=== PATIENT | male | born 1955 | race Caucasian/White ===

== ENCOUNTER 2016-12-12 10:31 | Inpatient (IN) | payer OTHER ==
[~2016-12-12] VITALS: Ht 170.2 cm; Wt 63.5 kg
[~2016-12-12 10:31] MED LIST: ADVAIR 100-501 EACH INH; CLONAZEPAM0.5 M2 PO; MIRTAZAPINE45 M1 PO; PREDNISONE20 M1 PO; PROAIR HFA8.5 GM INH; REMERON15 M2 PO; SENOKOT8.6 M2 PO; ZITHROMAX250 M2 PO
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
[2016-12-12 12:55] LABS: ABSOLUTE BASOPHIL COUNT 0 /CUMM (0.0-0.2); ABSOLUTE EOSINOPHIL COUNT 0.1 /CUMM (0.0-0.7); ABSOLUTE GRANULOCYTE CT 5.2 /CUMM (1.4-6.5); ABSOLUTE LYMPH COUNT 2.4 /CUMM (1.2-3.4); ABSOLUTE MONOCYTE COUNT 0.5 /CUMM (0.10-0.60); BASOPHIL % 0.4 % (0.0-2.0); EOSINOPHIL % 1.1 % (0-5); GRANULOCYTE % 63.3 % (42.2-75.2); HEMATOCRIT 46.8 % (42-52); MEAN CORPUSCULAR HGB 30.4 PG (27.0-31.0); MEAN CORPUSCULAR HGB CONC 33.9 G/DL (33.0-37.0); MEAN CORPUSCULAR VOLUME 89.8 FL (80.0-94.0); MEAN PLATELET VOLUME 7.8 FL (7.4-10.4); PLATELET COUNT 232 /CUMM (130-400); RBC DISTRIBUTION WIDTH 13.8 % (11.5-14.5); RED BLOOD CELL CT 5.22 /CUMM (4.70-6.10); WHITE BLOOD CELL COUNT 8.2 /CUMM (4.8-10.8)
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
--- NOTE | 2016-12-12 18:31 | NUR ---
PT SLEEPING AT THIS TIME. NO ACUTE DISTRESS NOTED. 1:[address] WILL CONTINUE TO MONITOR.
--- NOTE | 2016-12-12 19:52 | NUR ---
Crisis evaluation completed. Pt suicidal with plan. Pt is a bed search for inpatient admission.
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
--- NOTE | 2016-12-13 00:58 | NUR ---
PT WOKEN UP TO BE MEDICATED. PT GIVEN 50MG ATARAX PER EMAR. PT BACK TO SLEEP, NO DISTRESS, SITTER AT BEDSIDE
--- NOTE | 2016-12-13 02:46 | NUR ---
PT SLEEPING AT THIS TIME, BILATERAL CHEST RISE AND FALL NOTED, SITTER AT BEDSIDE FOR SAFETY, NAD.
--- NOTE | 2016-12-13 04:16 | NUR ---
PT SLEEPING AT THIS TIME, OFFERING NO COMPLAINTS, NAD. SITTER IN PLACE
--- NOTE | 2016-12-13 06:28 | NUR ---
PT SLEEPING AT THIS TIME, NO DISTRESS NOTED, OFFERING NO COMPLAINTS. SITTER AT BEDSIDE FOR SAFETY.
--- NOTE | 2016-12-13 07:27 | NUR ---
SLEEPING. SITTER IN ATTENDANCE. RR WNL.
--- NOTE | 2016-12-13 08:00 | NUR ---
OFFERED PT BREAKFAST, PT STATING "I'M GOING TO STARVE MYSELF TO ".
--- NOTE | 2016-12-13 09:32 | NUR ---
PT STATED TO THE SITTER THAT HE WAS SEEING LIZARDS. PT OFFERED DOSE OF KLONOPIN. PT REFUSED, STATING "WHAT ARE THESE THINGS ON MY ARMS, THEY HAVE BEEN THERE FOR 2 DAYS, I'M [facility] WHY CAN'T YOU TELL ME WHAT THEY ARE, I'M NOT TAKING ANYTHING UNTIL YOU TELL ME WHAT THEY ARE."
--- NOTE | 2016-12-13 10:47 | NUR ---
PICKING AT SCABS ON ARMS, C/O FEELING "ITCHY". WANTS TO LEAVE TO SEE A AUTOMOBILE ACCESSORIES SALESPERSON. DR. MOON VALADEZ.
--- NOTE | 2016-12-13 12:00 | NUR ---
PT REFUSING TO EAT. AWAITING DISPO/POC. Informed waiting has been performed.
--- NOTE | 2016-12-13 14:00 | NUR ---
PT WILL BE ADMITTED. AWARE OF ADMISSION STATUS. PT GIVEN HIS CELL PHONE TO MAKE PHONE CALLS. Informed waiting has been performed.
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
--- NOTE | 2016-12-13 15:00 | NUR ---
REPORT HANDED OFF TO DIGNA PALOMO.
--- NOTE | 2016-12-13 15:50 | SOCIAL WORKER PROG NOTE PSYCH ---
Social Work Progress Note Progress Note This clinician was unable to get pt to cooperate with answering questions for his diagnostic assessment and social hx. Pt presents as irritable, hyper verbal, and tangential. Pt would talk over this clinician not allowing questions to be asked. When questions were asked, he would not answer and was focused on talking about how angry he is at the system that has failed him and led him to want to kill himself.
[2016-12-13 17:15] VITALS: BP 134/90
[2016-12-13 19:56] VITALS: BP 148/90
--- NOTE | 2016-12-13 22:30 | NUR ---
Pt is out in the community loud at times no behavioral issues noted upon arrival. Pt is compliant and cooperative with the staff. Vital signs are stable c/o pain rn is aware. Pt appetite is good. Will continue to monitor the pt overnight.
--- NOTE | 2016-12-13 23:24 | NUR ---
Patient admitted to CPS from ED. Patient pleasant hyperverbal and impulsive with statements. Patient denies SI, but does report HI toward cousin who is up for parole for murdering family in [place], [place]. Patient has multiple sores about the face, neck and arms. Dr. Alexander evalaued in ED and reported off as not bed bugs, or other infestation. 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 Patient lives alone without monetary or public assistance. Patient speech loud, coherent. Patient has contracted for safety while on unit. Patient reports being sober for 2 years now. Patient can be loud, but redirectable. Looking forward to assisting James with mental health.
[2016-12-14 08:00] VITALS: BP 123/74
--- NOTE | 2016-12-14 12:13 | NUR ---
PT IS PRESENT ON THE UNIT, ATTENDING GROUPS, MET WITH HYDRAULIC LIFT OPERATOR AND BECAME IRRITABLE AND WAS UPSET THAT HE COULD NOT LEAVE RIGHT AWAY YET REFUSED TO SIGN A THREE DAY PAPER WHEN PRESENTED WITH THE CHANCE, ARON VALADEZ. AWAITING TO MEET WITH DR. MORRELL FOR H&P HE WANTS TO ADDRESS SCABS ON BODY, MOOD IS STABLE WITH FULL RANGE AFEFCT.
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
[2016-12-14 13:28] VITALS: BP 144/90
--- NOTE | 2016-12-14 14:25 | History & Physical ---
General Information and HPI History of Present Illness: This middle-aged male came in to the hospital for psychiatric help because he was feeling somewhat depressed and he claims he was not taking his medication properly that was given to him by outpatient psychiatrist. He also reports that he wanted some help with total disability and figured that the hospital can help him with that. He claims he has not seen his outpatient psychiatrist recently because he is not accepting his insurance anymore. From physical standpoint he complains of some itchy painter on both arms and around the neck as well as lower legs and feet for last few days. He claims he has had psychiatric history for a long time and has been seeing a psychiatrist for that. He denies any other major medical illnesses except for some COPD since he has been a smoker for about 40 years or so. He claims that he was only on Remeron and Ativan as outpatient. He is single never and no children and claims he is not drinking much alcohol. Allergies/Medications Allergies: Coded Allergies: Penicillins (UNKNOWN 07/01/16) Home Med list Clonazepam 0.5 MG TABLET 1 TAB PO DAILY NEEDED ANXIETY (Reported) Fluticasone-Salmeterol (Advair 100-50 Diskus) 1 EACH BLST.W.DEV 1 PUF INH BID ASTHMA (Reported) Mirtazapine (Remeron) 15 MG TABLET 1 TAB PO QPM MENTA (Reported) Prednisone 20 MG TABLET 1 TAB PO BID bronchospasm Sennosides (Senokot) 8.6 MG TABLET 1 TAB PO DAILY PRN constipation Past History Travel History Traveled to [place] past 21 day No Medical History Neurological: NONE EENT: NONE Respiratory: COPD Gastrointestinal: NONE Hepatic: NONE Renal: NONE Musculoskeletal: SCOLIOSOS Psychiatric: anxiety, bipolar disease, depression, schizophrenia, substance abuse Endocrine: NONE Blood Disorders: NONE Cancer(s): NONE 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 Denies: malaise, weakness, unexplained weight loss. EENTM: Denies: no symptoms. Cardiovascular: Denies: no symptoms. Respiratory: Reports: see HPI, cough. Denies: short of breath, sputum production. GI: Denies: no symptoms. Genitourinary: Denies: no symptoms. Musculoskeletal: Denies: no symptoms. Skin: Reports: see HPI, dryness, erythema, lesions, rash. Neurological/Psychological: Reports: see HPI, anxiety, depressed, emotional problems. Hematologic/Endocrine: Denies: no symptoms. Immunologic/Allergic: Denies: no symptoms. All Other Systems: Reviewed and Negative Exam & Diagnostic Data Last 24 Hrs of Vital Signs/I&O Vital Signs Date Time Temp Pulse Resp B/P Pulse O2 O2 Flow FiO2 Ox Delivery Rate 12/14 1328 80 144/90 12/14 08 96.7 89 123/74 12/13 1956 97.7 114 148/90 12/13 1715 108 134/90 Intake & Output 12/14 1600 12/14 0812/14 0000 Intake Total Output Total Balance Patient 140 lb Weight Physical Exam General Appearance Alert, Oriented X3, Cooperative, No Acute Distress Skin he has multiple groups of some maculopapular and erythematous lesions mostly in the distal arms on both sides and lower legs somewhat less as well as in the back of the neck with scratch painter. There are no vesicles but some crusting HEENT Atraumatic, PERRLA, EOMI, Mucous Membr. moist/pink Neck Supple, No JVD, No thryomegaly, +2 Carotid Pulse wo Bruit Lymphatic Cervical nl Cardiovascular Regular Rate, Normal S1, Normal S2, No Murmurs, Gallops, Rubs Lungs Clear to Auscultation, Normal Air Movement Abdomen Soft, No Tenderness, No Hepatospenomegaly, No Masses Neurological Exam Findings: Normal Gait, Normal Speech, Strength at 5/5 X4 Ext, Normal Tone, Cranial Nerves 3-12 NL, Reflexes 2+ Cranial Nerves II through XII: Within normal limits and intact. Extremities No Clubbing, No Cyanosis, No Edema, No Tenderness/Swelling Assessment/Plan Assessment: This middle-aged male is admitted for bipolar disorder and increased depression first time to [facility]. He has been admitted many other hospitals previously and admits that he was not taking all his medications as prescribed by his outpatient psychiatrist. He has multiple skin lesions which are maculopapular isolated and erythematous with scratch painter mostly in the distal arms and lower back area as well as lower legs which is much less than the arms. There are multiple scratch painter all over due to itching of the lesions. Some have some crusting and others are open due to recent scratching. Most likely they are insect bite rather than any other systemic disease. His labs including a CBC CMP liver function electrolytes are all normal. The urine for toxicology is positive for cannabis and negative for all other drugs tested. We can use topical hydrocortisone twice a day for a few days on the skin lesions and hopefully should help it heal and he can continue his hydroxyzine on a when necessary basis for itching that was already ordered. There is no other acute medical problem at this time and he does not require any other specific workup or treatment at this time. As Ranked By This Provider Problem List: 1. Depression Qualifiers Depression Type: unspecified Qualified Code: F32.9 - Major depressive disorder, single episode, unspecified 2. Suicidal ideation 3. Bed bug bite Qualifiers Encounter type: initial encounter Qualified Code: W57.XXXA - Bitten or stung by nonvenomous insect and other nonvenomous arthropods, initial encounter 4. COPD with acute bronchitis Miscellaneous Miscellaneous Documentation Attending Case Discussed With: SOM AL MD Primary Care Physician: MICHELLE IBANEZ MD Patient sees these Specialists none Level of Patient Care: NERISSA Payton Attending MD Review Statement Attending Statement Attending MD Statement: examined this patient, reviewed EMR data (avail), discussed with nursing Attending Assessment/Plan: This middle-aged male is admitted for increased depression and bipolar disorder. From medical standpoint he's fairly stable except for his skin lesions which are most likely insect bites rather than any other systemic disease. For now we will use the topical hydrocortisone twice a day and he can continue his hydroxyzine on a when necessary basis if needed. There is no need for any other medical workup or treatment at this time.
--- NOTE | 2016-12-14 15:25 | SOCIAL WORKER TX PLAN PSYCH ---
Treatment Plan - Please Document: - Evidence that there is ongoing collaboration between - the patient and the interdisciplinary team, - including the patient's active participation and - responsibility for engaging in the treatment regimen, - and that the treatment plan is individualized and - relevant to the patient's conditions. - Treatment plan should reflect documentation indicating - that all active therapeutic efforts are included. Strengths/Capabilities: Pt has a sister who wants to be supportive. Physical Limitations (Interventions): none reported Patient Identified Trmt Goals: " I need to get on disability." Discharge Plan: OP Problem/Goals #1 Problem #1: suicidal ideation Goal (Short Term): Today I will attend 2 groups Today I will identify 2 stressors Today I will identify 2 positive supports Today I will work on recognizing 3 emotions I am feeling Goal (Drencher): Be free of suicidal thoughts/attempts Develop 3 coping skills to deal with depression Identify 3 positive support systems to call in crisis Develop a crisis plan with 3 prakash people Identify 2 positive traits per week about myself Identify 2 things I have to look forward to Identify 2 positive people in my life and 1 thing I appreciate about them Interventions: Learn ways to manage depressive symptoms accordingly and identify positive supports to manage life stressors and mood fluctuations. Modalities: Encourage groups, education on depression, provide CBT treatment, family meeting. DSM5/PS Stressors/Medical Prob Diagnosis' (DSM 5, Stressors, Medical): F31.9 Bipolar Disorder Unspecified, F41.1 Anxiety Disorder,F43.10 PTSD, F43.0 Acute Stress, F12.20 Cannabis Use Disorder Severe, Z59.6 Low Income, Z59.9 Unspecified Housing or Economic problems (Pending eviction). Current GAF: 20 Treatment Team - Responsibilities of members of the treatment team include: - Medication Management- MD or CAPSULE MAKER - Medication Administration and Monitoring- Nurse - Group Therapy- Occupational Therapist - 1:1 Therapy,Disch Planning,family involvement-Special Education Itinerant Teacher
--- NOTE | 2016-12-14 15:25 | SOCIAL WORKER PROG NOTE PSYCH ---
Social Work Progress Note Progress Note SW met with patient for the first time today briefly. Patient is anxious about being on the unit and wishes to discharge in the near future. Patient is aware of the option of putting in a 3 day paper and at this time does not wish to do so. Patient has agreed to have his sister come in for a family meeting and she is coming in on Monday at 11am. 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 Patient denies SI/HI/AH/VH at present but does report anxiety and depression. Patient appeared to be hyperverbal at times with racing thoughts.
[2016-12-14 16:27] VITALS: BP 139/88
--- NOTE | 2016-12-14 16:59 | SOCIAL WORKER SOCIAL HX PSYCH ---
Social History Basic Assessment Insurance Authorization: Insurance #1: Insurance name: [employer] Phone number: Policy number: [id number] Group number: Authorization number: Curr Source of Income/Entitlements: NO Income Primary Care Physician: Patient's PCP: MICHELLE IBANEZ MD PCP's Present Problem: Met with James today to complete social history. James reported various stessors contributing to his decline in his mood, especially being out of work for the past few months, with no income. Currently, James denies SI/HI, no psychosis. He stated he was desperate and wanted to get his disability approved, and was unable to qualify for leo assistance with DSS, so he came to the ED. Other triggers include a cousin killing his family 20yrs ago, and a show about this appearing on TV recently. 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 He reports he hasn 't paid rent in the past 4 months, but is helping care for his landlord (who is his friend). 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 [employer] is interested in what I find." He is interested in going home , reports he has some "shows" and jobs this weekend, and can't afford to miss it. He agrees to have his sister come in for a meeting. Discussed IOP, he isn't interested wants to have a psychiatrist for medications. LHchai reports drinking was an issue in the past but was able to stop himself. He was drinking 2 shot and 2 six-packs of Beer daily for 1 year - he quit 2013, "cold turkey." Primary Language? German Language(s) Spoken At Home: German Living Situation Rents or Owns Home? rents Other Living Arrangement: risk of losing housing Feel Safe Where You Are Living Yes Feel Safe in Relationships? Yes Comments: Has a couple friends, not in any relationship with a significant other. Allergies - Coded Allergies: Penicillins (UNKNOWN 07/01/16) Current Medications - Scheduled Medications Budesonide/Formoterol Fumarate (Symbicort 80-4.5 Mcg Inhaler) 80 MCG-4.5 MCG/ ACTUATION HFA.AER.AD 2 PUF INH BID asthma #1 INHAL Prescribed by ARON STAFFORD APRN on 12/15/16 Hydrocortisone 0.5 % CREAM..G. 1 ADRIANNE EXT BID pruritis #1 TUBE Prescribed by ARON STAFFORD APRN on 12/15/16 Mirtazapine (Remeron) 15 MG TABLET 22.5 MG PO QPM depression/insomnia #28 TAB Prescribed by ARON STAFFORD APRN on 12/15/16 Scheduled PRN Medications Clonazepam (Klonopin) 0.5 MG TABLET 0.5 MG PO DAILY NEEDED PRN ANXIETY #14 TAB Prescribed by ARON STAFFORD APRN on 12/15/16 Hydroxyzine HCl 10 MG TABLET 10 MG PO Q8P PRN ANXIETY #42 TAB Prescribed by ARON STAFFORD APRN on 12/15/16 Discontinued Medications Mirtazapine 45 MG TABLET 1 TAB PO QPM MENTAL HEALTH #30 (Reported) Discontinued reason: Changed Dose Last Taken: 12/09/16 2100 Past History Past Medical History Neurological: NONE EENT: NONE Respiratory: COPD Gastrointestinal: NONE Hepatic: NONE Renal: NONE Musculoskeletal: SCOLIOSOS Psychiatric: anxiety, bipolar disease, depression, schizophrenia, substance abuse Endocrine: NONE Blood Disorders: NONE Cancer(s): NONE 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 No Mother's Age (Current/): 85 Relationship w/Mother: D. 85yo, was close to mother Father's Age (Current/): 79 Relationship w/Father: D. 79yo, 25 years ago form [facility]. He was a WWII - he liberated 2 concentration camps.. he was a gentle warrior" Any Sibling(s)? Yes Sibling's Gender(s)/Age(s): female Sibling 1: Relationship w/Sibling(s): Got closer to sister since her Relationship w/Friends: Some friends Family Psych/Sub Abuse/Add Hx: none reported Abuse/Trauma History Trauma History/Current Trauma: Pt's cousin murdered his family History of Trauma/Abuse Treatment? No Abuse/Trauma Treatment: 20yrs ago, Pt's cousin murdered his parents and brother. Legal History Current Legal Status: none Have you ever been arrested No Hx of Juvenile Legal Charges? No Hx of Adult Legal Charges? No Psychosocial History Primary Support System: sibling(s) Strengths/Capabilities: Pt has a sister who wants to be supportive. Weaknesses: Off medication due to insurance and psychiatrist not accepting Pt's insurace [facility] Physical Limitations (Interventions): none reported Last Physical: 1 week ago History of Seizures? No History of Blackouts? No ADL Limitations: Denied [place]/Social/Peer Relations ONe or two friends, they can't help me Meaningful Activities: Taxadermy Childhood Zoroastrian: Alevism Current Episcopal Affiliation: no mu-ism stated Is Spirituality Important to You? I believe in God Patient's Ethnicity: Yoruba Cultural/Ethnic Issues: None reported Are There Developmental Issues? 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 Risk Factors: chronic/serious med cond., high anxiety/distress, substance abuse, poor impulse control, lives alone, male, limited support Substance Use/Abuse History Drug Use/Abuse 1 Substance Used/Abused Marijuana First Use Unknown Last Used Unknown How much used/taken unknown How often unknown For how long unknown Route of use smoked Drug Use/Abuse 2 Substance Used/Abused Alcohol Last Used intermittent How much used/taken vague about amt. was drinking heavily in 2013 then quit. How often intermittent For how long on and off Relapse History? Yes Explain: Pt. denied SA issues Have You Ever Attended AA? No Do You Attend AA Currently? No Do You Have a Sponsor? No Substance Abuse Treatment Substance Abuse Treatment Inpatient Treatment No Outpatient Treatment No Location of Treatment n/a Reason for Treatment n/a Dates of Treatment n/a Response to Treatment n/a Sexual History Sexually Active No # of partners 0 Sexual Orientation Heterosexual Education History Highest Level of Education: high school/GED Highest Grade Completed: 12th grade 1975 Preferred Learning Style: visual, auditory, experiential HX of Learning Difficulties: None reported Barriers to Learning: None reported Special Communication Needs: None reported Employment History Employment Unemployed 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 of Jobs in Last 5 Years: 0 History Have You Been in The ? No Current Mental Status Problem List: 1. Depression 2. Suicidal ideation Mental Status Orientation: Person, Place, Situation Affect: Anxious, Angry, Depressed, Flat, Hopeless, Inappropriate, Lonely, Sad Speech: Hyper-verbal, Mumbled Neuro-vegetative: Appetite Decreased, Concentration Poor, Helpless, Loss of Interest, Sleep Disturbance Appearance Appearance- Dress/Hygiene: Disheveled, rashes all over his arms, tatootes, Poor hygiene Behaviors Thought Process: Disorganized Thought Content: Somatic Memory: WNL Insight: Poor SI/HI Risk Assessment Past Suicidal Ideation/Attempts Yes Current Suicidal Ideation/Att Yes Past Homicidal Ideation/Att: No Current Homicidal Ideation/Attempts Yes Degree of Intent: States Intent, Thoughts/No Intent Danger To: Others, Self Gravely Disabled: Lack of Insight, Poor Judgment Lethality Ratin - Conclusion and Recommendations for treatment - and discharge planning
[2016-12-14 19:50] VITALS: BP 146/90
--- NOTE | 2016-12-14 22:10 | NUR ---
PT IS CALM, COOPRATIVE WITH STAFF AND PEERS, AND COMPLIANT WITH UNIT RULES. PT IS IN [place], INTERACTING WELL WITH STAFF AND PEERS. PT MOOD IS STABLE, AFFECT IS FULL RANGE, COMMUNICATION IS NORMAL, AND APPETITE IS NORMAL. PT DENIES SI AT THIS TIME.
[2016-12-15 07:44] VITALS: BP 102/61
--- NOTE | 2016-12-15 08:33 | CP SOUTH PROGRESS NOTE PSYCH ---
Psych (Inpt) Progress Note Progress Note Include the following elements, when applicable: Involvement in the active treatment of the patient with behavioral observations of the patient and the patient's response to the treatment. Review of the ongoing treatment process in the context of the treatment plan. Indication of how multi-disciplinary staff members are carrying out the treatment plan. Plans for future interventions and recommendations for revision of the treatment plan. Liaison with other physicians/providers. Progress Note: [I discussed this patient's progress to date, current mental status, treatment process in the context of the treatment plan, and discharge planning with staff/ team in the daily morning inpatient team meeting. I also met with the patient myself in individual session.] SUBJECTIVE: "I feel good." OBJECTIVE: Current Medications Sig/Nathan Start time Last Medication Dose Route Stop Time Status Admin Acetaminophen 650 MG Q6P PRN 12/13 1200 AC PO Al Hydroxide/Mg 30 ML Q4-6 PRN PRN 12/13 1200 AC Hydroxide PO Budesonide/ 2 PUF BID 12/13 2200 AC 12/14 Formoterol Fumarate INH 2132 Clonazepam 0.5 MG DAILY NEEDED PRN 12/13 1200 AC 12/13 PO 07 1159 2001 Gabapentin 300 MG Q6P PRN 12/13 1200 AC PO Hydrocortisone 1 ADRIANNE BID 12/14 2200 AC 12/14 EXT 12/21 1800 2132 Hydroxyzine HCl 10 MG Q8P PRN 12/13 1200 AC PO Magnesium Hydroxide 30 ML AT BEDTIME PRN 12/13 1200 AC PO Mirtazapine 22.5 MG QPM 12/13 2200 AC 12/14 PO 2132 Senna 187 MG DAILY 12/13 1153 AC PO Trazodone HCl 50 MG AT BEDTIME NEED.. 12/13 1200 AC PO ASSESSMENT: A family meeting was held with the patient, his sister, Lizet Bryant LASHELL and this verse writer. The patient's level of safety, medication regimen, and discharge planning were reviewed. The patient's sister expressed no acute concerns related to the patient being discharged, and felt the main factor leading to this admission was related to him running out of prescribed medications. The patient and his sister were in favor of the patient following up at [facility] for medication management. Met with the patient today, on the date of discharge. Patient presented alert and oriented to person, place, time and situation. Affect was full-range. Mood was "good." Eye contact was appropriate. Speech was normal in rate, tone and volume. He reported anxiety of 0/10 (10 being the worst) and depression of 0/10 (10 being the worst). He denied feeling hopeless, helpless, worthless, and guilty. He denied active and passive suicidal ideation, plans and intent. He denied homicidal ideation. He identified his "sister" and "family" as protective factors. He stated and also believed he will not harm himself or others. Thought process was organized and goal-directed. Thought content was appropriate. Patient denied auditory and visual hallucinations. There was no evidence of paranoia, delusions, or roderick. Reported sleep and appetite were good. The patient reported tolerating all medications well and denied untoward medication effects. Patient reported feeling safe and ready for discharge. PLAN: 1. Discharge to home and into the care of patient's sister. 2. F/u with OPS intake on 12/23/16 at 8:15AM with Susie Swain; and medication intake on 12/27/16 at 1:30PM with Dr. Lundberg. Patient verbalized understanding of appointments. 3. Patient refused Smoking Cessation Program and d/c nicotine cessation medication. 4. Advised to abstain from cannabis. 5. In the event of an emergency, call 911/go to nearest emergency department. Patient verbalized understanding of all instruction. 6. Discharge prescriptions were printed/reviewed with the patient, and provided to patient on discharge.
[2016-12-15] MEDS ORDERED: HYDROXYZINE HCL10 M1 PO (11:33)
[2016-12-15] MEDS ORDERED: HYDROCORTISO28.35 GM EXT (11:33)
[2016-12-15] MEDS ORDERED: KLONOPIN0.5 M1 PO (11:33)
[2016-12-15] MEDS ORDERED: REMERON15 M2 PO (11:33)
[2016-12-15 12:18] VITALS: BP 144/80
[2016-12-15] MEDS ORDERED: SYMBICORT 80-10.2 GM INH (13:37)
--- NOTE | 2016-12-15 13:51 | DISCHARGE SUMMARY REPORT-PSYCH ---
Visit Information Visit Dates/Diagnosis' Admission Date: 12/13/16 Discharge Date: 12/15/16 Reason for Admission: Reported SI Psy Discharge Primary Diag: Unspecified Bipolar Disorder Psy Discharge Secondary Diag: R/O PTSD; Cannabis use disorder, severe; COPD Hospital Course Significant Lab Findings: Lab Urine Cannabis Screen > 80.00 NG/ML H 12/12/16 1415 Course Complications: None. Consultations: Patient was seen for admission history and physical by Dr. Allen Edwards. Please see his note for additional details. Patient was started on Hydrocortisone topical for multiple groups of some maculopapular and erythematous lesions mostly in the distal arms, on both sides and lower legs, the back of the neck with scratch painter. There were no vesicles but some crusting. Per Dr. Edwards, lesions were most likely consistent with insect bites rather than any other systemic disease. Allergies: Coded Allergies: Penicillins (UNKNOWN 07/01/16) Hospital Course/TX Response: The patient was monitored on the unit for safety, suicidal ideation and mood. He participated in multimodal treatments on the unit. He denied suicidal ideation once arriving to [facility], and reported having stated this as a means to make a stronger case for receiving disability, which he had formerly been denied. He also reported running out of prescribed medications of Remeron 22.5mg at HS and Atarax 10mg [id number] as needed, after being discharged from outpatient psychiatrist's practice due to insurance related issues. Reported the only prescribed medication he had been taking prior to [facility] admission was Klonopin 0.5mg daily prn for anxiety. Patient was restarted back on outpatient prescribed medications: Remeron 22.5mg QHS for insomnia and depression, Klonopin 0.5mg daily prn for anxiety, and Atarax 10mg [id number] prn for anxiety. Patient tolerated medications well and denied untoward medication effects. Patient was not agreeable to trialing alternative psychotropic medications such as mood stabilizers (Li, VPA, CBZ). During the hospital course, the patient consistently denied passive and active suicidal ideation and plans. He consistently denied homicidal ideation, plans and intent. Mood appeared stable. There was no evidence of manic or psychotic symptoms. He denied auditory and visual hallucinations. A family meeting was held with the patient, his sister, Lizet LASHELL Bryant and this policy writer. The patient's treatment progress, medication regimen, level of safety, and discharge planning were reviewed and discussed. The patient's sister denied having any acute concerns regarding the patient's level of safety or discharge plan. She reported no prior suicide attempts made by the patient, and reported she felt the causes of his admission were related to housing stress and running out of prescribed medication. She and the patient were in favor of discharge plan for the patient to follow-up with OPS for medication management. On the date of discharge, 12/15/16, the patient presented alert and oriented to person, place, time and situation. Affect was full-range. Mood was "good." Eye contact was appropriate. Speech was normal in rate, tone and volume. He reported anxiety of 0/10 (10 being the worst) and depression of 0/10 (10 being the worst) . He denied feeling hopeless, helpless, worthless, and guilty. He denied active and passive suicidal ideation, plans and intent. He denied homicidal ideation. He identified his "sister" and "family" as protective factors. He stated and also believed he will not harm himself or others. Thought process was organized and goal-directed. Thought content was appropriate. Patient denied auditory and visual hallucinations. There was no evidence of paranoia, delusions, or roderick. Reported sleep and appetite were good. The patient reported tolerating all medications well and denied untoward medication effects. Patient reported feeling safe and ready for discharge. Discharge HBIPS - Tobacco Use Treatment Offered Post DC Medications Offered: Refused Tob Medication Tx Post DC Tobacco Treatment Plan: Refused Tobcco Tx Pgm - EtOH/Drug Use D/O Treatment Offered Post DC Medications Offered: Med Not Indicated for D/O Post DC EtOH/SubAbuse TX Plan: Refused Post DC Tx Pgm Metabolic Screening - Screen if on a Neuroleptic Medication - Metabolic screening should include: - Blood Pressure, BMI, Glucose or Hgb A1c, & a - Lipid profile from within the past 365 days. Metabolic Screening ([X]) Not Applicable, patient not on a neuroleptic. OR () Patient on a neuroleptic(s) . Enter below results for Glucose or Hemoglobin A1C, and lipid panel if obtained during the last 365 days. BMI: 21.900 Blood Pressure: 144/80 Laboratory Results (If applicable): n/a Discharge Instructions General Discharge Information Discharge Medications: Discharge Medications- (Dose, route, freq, indication): HOME MEDICATION LIST START taking these NEW Home Medications: Clonazepam Dose: ORAL, DAILY NEEDED as Qty: 14 Printed (Klonopin) 0.5 MG 0.5 Milligram needed for ANXIETY Refills: 0 TABLET Last Taken: 12/13/16 Time: 2000 Mirtazapine Dose: ORAL, Every night for Qty: 28 Printed (Remeron) 15 MG 22.5 depression/insomnia Refills: 0 TABLET Milligram Take 1 and 1/2 tablets (22.5mg) by mouth at bedtime. Last Taken: 12/14/16 Time: 2130 Hydroxyzine HCl Dose: ORAL, EVERY 8 HOURS Qty: 42 Printed (Hydroxyzine HCl) 10 10 Milligram NEEDED as needed for Refills: 0 MG TABLET ANXIETY NOTE: NOT GIVEN DURING THIS INPATIENT HOSPITALIZATION STAY. Hydrocortisone Dose: ON SKIN, TWICE DAILY for Qty: 1 Printed (Hydrocortisone) 0.5 1 Application pruritis Refills: 0 % CREAM..G. Last Taken: 12/15/16 Time: 0900 Budesonide/ Dose: Inhale through mouth, Qty: 1 Printed Formoterol Fumarate 2 Puff TWICE DAILY for asthma Refills: 0 (Symbicort 80-4.5 Last Taken: 12/15/16 Mcg Inhaler) 80 MCG- Time: 0900 4.5 MCG/ACTUATION HFA.AER.AD Printed discharge prescriptions were reviewed with and provided to the patient on the date of discharge, 12/16/16. STOP taking these DISCONTINUED Home Medications: Mirtazapine (Mirtazapine) 45 Dose: ORAL, Every night for MENTAL MG TABLET 1 Tablet HEALTH Reason Stopped: Changed Dose Multiple Neuroleptics: ([X]) Not Applicable OR Document below three failed attempts at monotherapy, or a plan to taper to monotherapy, or augmentation of Clozapine. () Patient's Diet: Regular. Patient's Activity: No restrictions. DC Disposition: Patient to return to home and discharge into the care of his sister. Recommendations: The patient was advised to please take medications. He was advised to abstain from cannabis use. He was advised to follow-up with OPS appointments. He was advised to follow-up with PCP for bug bites, if hydrocortisone cream does not continue to relieve symptoms, and bug bites do not resolve. Patient was offered to start a nicotine cessation medication during hospital course, and declined. He declined follow-up with Smoking Cessation Program and discharge smoking cessation medication. Patient was advised that in the event of an emergency, to call 911/go to nearest emergency department. Patient verbalized understanding of all instructions. Referred To: OPS [address] [place] [address] [phone] Intake appointment with Susie Swain LCSW on 12/23/16 at 8:15AM. Medication intake scheduled with Dr. Lundberg on 12/27/16 at 1:30PM. Copies To: [facility] OPS
--- NOTE | 2016-12-15 13:51 | NUR ---
PT PRESENT ON UNIT, NO ISSUES OR COMPLAINTS REPORTED OR OBSERVED, SCHEDULED FOR FAMILY MEETING TODAY AT 1400 AND ALSO DISCHARGE AFTER THAT, GIVEN EDUCATION AND INFORMATION PACKETS ON SI & BIPOLAR, PT RESOURCE GUIDE REVIEWED WELL. WHEN ASKED DIRECTLY DENIES SI/HI/HALLUCINATION AND REPORTS + UNDERSTANDING IN RE: MEDICATION REGIMENT AND MOTIVATION FOR FOLLOW-UP DISCHARGE PLAN. PT ALSO REPORTS OVERALL IMPROVEMENT, PLEASED TO BE BACK ON MEDIOCATIONS AND FEELING BETTER, + SLEEP AND APPETITE.
--- NOTE | 2016-12-15 13:52 | CP SOUTH PROGRESS NOTE PSYCH ---
Psych (Inpt) Progress Note Progress Note Note entered in error.
--- NOTE | 2016-12-15 13:55 | NUR ---
PT IS CALM, COOPERATIVE AND COMPLIANT. APPROPRIATE TO THE UNIT AND DOES NOT REQUIRE ANY REDIRECTION. AWAITING FOR THE FM AND POTENTIAL DC THIS AFTERNOON. VS ARE STABLE AND DENIES ANY SI/HI TO THIS [facility]HW.
--- NOTE | 2016-12-15 15:29 | SOCIAL WORKER PROG NOTE PSYCH ---
Social Work Progress Note Progress Note Patient to discharge home today. Patient's sister, Britany, came in today for a family meeting. Britany appears to be a good support for patient and expressed concern primarily over his housing and finances. Patient expressed a desire to seek new housing and possibly get under [place]. Patient recommended to reach out to [facility]'s case management team to see if they can help provide any services for patient. Patient refused IOP with [facility] so has been referred to [facility] OP. Patient has intake on 12/23/16 and first med appointment on 12/27/16. Patient is aware and plans to attend both appointments.
== END 2016-12-15 14:30 | DRG 753 ==
LOC: ERH 10:31 → ERHI 12-13 11:44 → CP SOUTH 12-13 11:44
PROVIDERS: Emergency Medicine; ADMIT Psychiatry & Neurology Psychiatry
DX: F31.9 Bipolar disorder, unspecified (principal); F12.20 Cannabis dependence, uncomplicated; J45.909 Unspecified asthma, uncomplicated
CPT/HCPCS: 80307; G0463; G0480; J2405; J3490

== ENCOUNTER 2018-06-09 03:31 | Emergency (ER) | payer OTHER ==
[~2018-06-09 03:31] MED LIST changes: +ABILIFY15 M1 PO; +HYDROCORTISO28.35 GM EXT; +HYDROXYZINE HCL10 M1 PO; +KLONOPIN0.5 M1 PO; +SYMBICORT 80-10.2 GM INH
--- NOTE | 2018-06-09 03:36 | ED DYSPNEA/ASTHMA COMPLAINT ---
History of Present Illness General Chief Complaint: General Adult Stated Complaint: "CP,SOB" Source: patient Exam Limitations: no limitations Vital Signs & Intake/Output Vital Signs & Intake/Output Vital Signs Date Time Temp Pulse Resp B/P B/P Pulse O2 O2 Flow FiO2 Mean Ox Delivery Rate 06/09 0417 70 134/90 06/09 0407 97.5 74 18 121/83 97 06/09 0359 66 136/91 06/09 0339 97.8 68 22 151/97 100 Allergies Coded Allergies: Penicillins (UNKNOWN 07/01/16) Reconcile Medications Aripiprazole (Abilify) 15 MG TABLET 1 TAB PO DAILY BIPOLAR (Reported) Budesonide/Formoterol Fumarate (Symbicort 80-4.5 Mcg Inhaler) 80 MCG-4.5 MCG/ ACTUATION HFA.AER.AD 2 PUF INH BID asthma Triage Nurses Notes Reviewed? yes Onset: Gradual Duration: hour(s): Timing: recent history Severity: moderate Activities at Onset: none Prior Episodes/Possible Cause: no prior episodes Modifying Factors: Improves With: rest. Associated Symptoms: chest squeezing HPI: 63 yo gentleman with 8/10 sscp since 8pm last night, radiating down right arm, occasionally left arm. "I was sweating buckets...." He notes that the discomfort "feels like a squeezing in my chest," w/ diaphoresis, off and on, since 8pm. He notes no cough, wheezing, abdominal pain, nausea, vomiting, diarrhea. Past History Travel History Traveled to [place] past 21 day No Medical History Any Pertinent Medical History? 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 No Review of Systems Review of Systems Constitutional: Reports: no symptoms. EENTM: Reports: no symptoms. Respiratory: Reports: no symptoms. Cardiovascular: Reports: no symptoms. GI: Reports: no symptoms. Genitourinary: Reports: no symptoms. Musculoskeletal: Reports: no symptoms. Skin: Reports: no symptoms. Neurological/Psychological: Reports: no symptoms. Hematologic/Endocrine: Reports: no symptoms. Immunologic/Allergic: Reports: no symptoms. All Other Systems: Reviewed and Negative Physical Exam Physical Exam General Appearance: well developed/nourished, mild distress Head: atraumatic, normal appearance Eyes: Bilateral: normal appearance. Ears, Nose, Throat: normal pharynx, normal ENT inspection Neck: normal inspection, supple, full range of motion Respiratory: normal breath sounds, chest non-tender, no respiratory distress, quiet respiration, lungs clear Cardiovascular: regular rate/rhythm Gastrointestinal: normal bowel sounds, soft, non-tender Rectal: normal exam, normal rectal tone, heme negative stool Extremities: normal inspection, normal capillary refill, normal range of motion Neurologic/Psych: no motor/sensory deficits, awake, alert, oriented x 3 Skin: intact, normal color, warm/dry Core Measures ACS in differential dx? Yes No ASA d/t aspirin given CVA/TIA Diagnosis No Sepsis Present: No Sepsis Focused Exam Completed? No Progress Differential Diagnosis: AMI, unstable angina, vs other Plan of Care: Orders Procedure Date/time Status EKG 06/09 0451 Active PARTIAL THROMBOPLASTIN TIME 06/09 0348 Complete PROTHROMBIN TIME 06/09 0348 Complete D-DIMER 06/09 0348 Complete TROPONIN LEVEL 06/09 0336 Complete LIPASE 06/09 0336 Complete HEPATIC FUNCTION PANEL 06/09 0336 Complete CBC WITHOUT DIFFERENTIAL 06/09 0336 Complete BASIC METABOLIC PANEL 06/09 0336 Complete AMYLASE 06/09 0336 Complete EKG 06/09 0332 Active Current Medications Sig/Nathan Start time Last Medication Dose Stop Time Status Admin Heparin Sodium 5,000 UNIT 06/09 0500 CAN (Porcine) Heparin Sodium 25,000 UNIT Q24H 06/09 0500 AC 06/09 (Porcine) 0456 (Heparin) Sodium Chloride 500 ML Morphine Sulfate 6 MG ONCE ONE 06/09 0415 CAN (MORPHINE SULFATE) 06/09 0416 Laboratory Tests 06/09/18 0349: Anion Gap 13, Estimated GFR > 60, BUN/Creatinine Ratio 16.3, Glucose 147 H, Calcium 9.9, Total Bilirubin 0.6, Direct Bilirubin 0.2, AST 111 H, ALT 42, Alkaline Phosphatase 83, Troponin I 7.56 *H, Total Protein 7.4, Albumin 4.5, Amylase 69, Lipase 135, PT 10.5, INR 0.96, APTT 30, D-Dimer High Sensitivty 379 H, CBC w Diff NO MAN DIFF REQ, RBC 4.97, MCV 90.8, MCH 30.5, MCHC 33.6, RDW 13.8 , MPV 8.1, Gran % 80.0 H, Lymphocytes % 14.8 L, Monocytes % 4.6, Eosinophils % 0.1, Basophils % 0.5, Absolute Granulocytes 10.1 H, Absolute Lymphocytes 1.9, Absolute Monocytes 0.6, Absolute Eosinophils 0, Absolute Basophils 0.1 06/09/18 0341: PT Cancelled, INR Cancelled, APTT Cancelled Diagnostic Imaging: Viewed by Me: Radiology Read. Discussed w/RAD: Radiology Read. Radiology Impression: PATIENT: SANDRO JASMINE PRESENT AGE : 63 PATIENT ACCOUNT NO: [id number] : 57 LOCATION: ER ORDERING PHYSICIAN: Roby Vicente MD SERVICE DATE: 06/09/18 EXAM TYPE: RAD - XRY-PORTABLE CHEST XRAY EXAMINATION: CHEST 1 VIEW CLINICAL INFORMATION: Chest pain. COMPARISON: July 31, 2016. TECHNIQUE: An AP view of the chest is provided. FINDINGS: The cardiac silhouette is not enlarged. The mediastinal and hilar contours are unremarkable. There are neither pleural effusions nor pneumothoraces. There are no consolidations. The osseous structures are stable. IMPRESSION: No evidence for acute disease. DICTATED BY: William Omalley MD DATE/ TIME DICTATED:06/09/18412 CLASSROOM AIDE:GIRISH DATE/TIME TRANSCRIBED: 06/09/18412 CONFIDENTIAL, DO NOT COPY WITHOUT APPROPRIATE AUTHORIZATION. < Electronically signed in Other Vendor System> SIGNED BY: William Omalley MD 06/09/18416 CXR Impression: PATIENT: SANDRO JASMINE PRESENT AGE: 63 PATIENT ACCOUNT NO: [id number] : 57 LOCATION: ER ORDERING PHYSICIAN: Roby Vicente MD SERVICE DATE: 06/09/18 EXAM TYPE: RAD - XRY- PORTABLE CHEST XRAY EXAMINATION: CHEST 1 VIEW CLINICAL INFORMATION: Chest pain. COMPARISON: July 31, 2016. TECHNIQUE: An AP view of the chest is provided. FINDINGS: The cardiac silhouette is not enlarged. The mediastinal and hilar contours are unremarkable. There are neither pleural effusions nor pneumothoraces. There are no consolidations. The osseous structures are stable. IMPRESSION: No evidence for acute disease. DICTATED BY: William Omalley MD DATE/ TIME DICTATED:06/09/18412 CLASSROOM AIDE:GIRISH DATE/TIME TRANSCRIBED: 06/09/18412 CONFIDENTIAL, DO NOT COPY WITHOUT APPROPRIATE AUTHORIZATION. < Electronically signed in Other Vendor System> SIGNED BY: William Omalley MD 06/09/18416 Initial ED EKG: SINUS, q waves II, II, F st depressions I, L st elevation III Departure Departure Disposition: OTHER [facility] (ACUTE) Condition: Stable Clinical Impression Primary Impression: Myocardial infarction Referrals: Harley WOODARD,Gideon Ross (PCP/Family) Departure Forms: Customer Survey General Discharge Information Comments 06/09/18, 4:48...discussed with dr. villeda... [facility]reno interventionalist... 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 pt given nitrates, aspirin, brilinta, o2, heparin gtt... pt has signed consent form. Critical Care Note Critical Care Note Critical Care Time: 30-74 min Critical Care Note Critical Care Time: 30-74 min
[2018-06-09 04:06] LABS: ABSOLUTE BASOPHIL COUNT 0.1 /CUMM (0.0-0.2); ABSOLUTE EOSINOPHIL COUNT 0 /CUMM (0.0-0.7); ABSOLUTE GRANULOCYTE CT 10.1 /CUMM (1.4-6.5); ABSOLUTE LYMPH COUNT 1.9 /CUMM (1.2-3.4); ABSOLUTE MONOCYTE COUNT 0.6 /CUMM (0.10-0.60); BASOPHIL % 0.5 % (0.0-2.0); EOSINOPHIL % 0.1 % (0-5); HEMATOCRIT 45.1 % (42-52); MEAN CORPUSCULAR HGB 30.5 PG (27.0-31.0); MEAN CORPUSCULAR HGB CONC 33.6 G/DL (33.0-37.0); MEAN CORPUSCULAR VOLUME 90.8 FL (80.0-94.0); MEAN PLATELET VOLUME 8.1 FL (7.4-10.4); PLATELET COUNT 285 /CUMM (130-400); RBC DISTRIBUTION WIDTH 13.8 % (11.5-14.5); RED BLOOD CELL CT 4.97 /CUMM (4.70-6.10); WHITE BLOOD CELL COUNT 12.7 /CUMM (4.8-10.8)
[2018-06-09 04:17] VITALS: BP 134/90
--- NOTE | 2018-06-09 04:17 | RADIOLOGY REPORT ---
EXAMINATION: CHEST 1 VIEW CLINICAL INFORMATION: Chest pain. COMPARISON: July 31, 2016. TECHNIQUE: An AP view of the chest is provided. FINDINGS: The cardiac silhouette is not enlarged. The mediastinal and hilar contours are unremarkable. There are neither pleural effusions nor pneumothoraces. There are no consolidations. The osseous structures are stable. IMPRESSION: No evidence for acute disease.
[2018-06-09 04:22] LABS: PT 10.5 SEC (9.4-12.5); PTT 30 SEC (25-37)
== END 2018-06-09 05:36 | disposition short-term general hospital (02) ==
LOC: ERH 03:31
PROVIDERS: Pediatrics
DX: I21.9 Acute myocardial infarction, unspecified (principal); J44.9 Chronic obstructive pulmonary disease, unspecified
CPT/HCPCS: 71045; 93005; 93010; 96374; 96375; 99291; J1644; J3490